=== PATIENT | male | born 1990 | race Caucasian/White ===

== ENCOUNTER 2016-10-04 00:57 | Emergency (ER) | payer OTHER ==
[~2016-10-04] VITALS: Ht 182.9 cm; Wt 107.0 kg
[~2016-10-04 00:57] MED LIST: ZOLP5TAB3 PO; [UNRECOGNIZED DRUG - REMARK]
[2016-10-04 01:15] VITALS: BP 111/80; PULSE 84; RESP 18; TEMP 98.9; O2SAT 96
[2016-10-04] MEDS ORDERED: FENO145T2 PO (01:15)
[2016-10-04] MEDS ORDERED: VIST50CA PO (01:15)
[2016-10-04] MEDS ORDERED: SODIUM CHLOR 0.9% 1000 ML INJ 1,000 ML IV ONE (01:30)
[2016-10-04] MEDS ORDERED: SODIUM CHLORIDE 0.9% FLUSH 10 ML FLUSH IVF PRN (01:30)
[2016-10-04 01:31] VITALS: BP 111/64; PULSE 73; RESP 16; O2SAT 95
--- NOTE | 2016-10-04 01:34 | PD ---
HPI Chief Complaint: Syncope/Near-Syncope Time Seen by Provider: 01:30 Travel History International Travel<30 days: No Contact w/Intl Traveler<30days: No Traveled to known affect area: No History of Present Illness HPI 25-year-old male with history of pituitary adenoma currently being evaluated, presents to the ER today because he had taken Vistaril which she usually takes for insomnia and had gone to the restroom, but had a syncopal episode. He denies any chest pains, shortness of breath, vomiting, headaches, or any other symptoms. He does not remember exactly what happened but apparently his family states that he stumbled out after he had had a syncopal episode and was poorly arousable, awoken with sternal rub. Modifying Factors: None Associated Signs & Symptoms: Apparent syncopal episode Risk Factors: History of pituitary adenoma PFSH Past Medical History Asthma: Yes (EXERCISE INDUCED) Cancer: Yes (BRAIN TUMOR 2009) Cardiovascular Problems: Yes (states mi was seen here 1-2 years ago) Diminished Hearing: No Endocrine: Yes (pituitary tumor) Headaches: Yes Musculoskeletal: Yes (CHRONIC NECK AND BACK PAIN) Neurologic: Yes (ENLARGED PITUITARY GLAND..) Immunizations Current: Yes Tetanus Vaccination: > 5 Years Past Surgical History Abdominal Surgery: Yes (WHEN HE WAS A BABY ) Neurologic Surgery: Yes (pituitary tumor removal) Other Surgery: Yes (ENDOSCOPY ) Social History Alcohol Use: Yes (SOCIALLY) Tobacco Use: Yes (/2 PPD- 1PPD) Substance Use: No Allergies-Medications (Allergen,Severity, Reaction): Coded Allergies: Dilaudid (Verified Allergy, Severe, Nausea/Vomiting, 10/04/16) Morphine (Verified Allergy, Severe, Diarrhea, 10/04/16) Benadryl (Verified Allergy, Intermediate, RASH, 10/04/16) Reported Meds & Prescriptions Reported Meds & Active Scripts Active Reported Vistaril (Hydroxyzine Pamoate) 50 Mg Cap 50 Mg PO HS Fenofibrate 145 Mg Tab 145 Mg PO DAILY Review of Systems Except as stated in HPI: all other systems reviewed are Neg Physical Exam Narrative GENERAL: Well-developed young male patient currently in mild distress, fairly lethargic, but awake and oriented 3 and able to answer questions appropriately. SKIN: Focused skin assessment warm/dry. HEAD: Atraumatic. Normocephalic. EYES: Pupils equal and round. No scleral icterus. No injection or drainage. ENT: No nasal bleeding or discharge. Mucous membranes pink and moist. NECK: Trachea midline. No JVD. CARDIOVASCULAR: Regular rate and rhythm. No murmur appreciated. RESPIRATORY: No accessory muscle use. Clear to auscultation. Breath sounds equal bilaterally. GASTROINTESTINAL: Abdomen soft, non-tender, nondistended. Hepatic and splenic margins not palpable. MUSCULOSKELETAL: No obvious deformities. No clubbing. No cyanosis. No edema. NEUROLOGICAL: Awake and alert. No obvious cranial nerve deficits. Motor grossly within normal limits. Slurred speech. PSYCHIATRIC: Appropriate mood and affect; insight and judgment normal. Data Data Last Documented VS Vital Signs Date Time Temp Pulse Resp B/P Pulse Ox O2 Delivery O2 Flow Rate FiO2 10/04/16 02:58 52 16 103/64 95 Room Air 10/04/16 01:15 98.9 Orders Electrocardiogram (10/04/16 01:30) Complete Blood Count With Diff (10/04/16 01:30) Comprehensive Metabolic Panel (10/04/16 01:30) Magnesium (Mg) (10/04/16 01:30) Chest, Single Ap (10/04/16 01:30) Ct Brain W/O Iv Contrast(Rout) (10/04/16 01:30) Ecg Monitoring (10/04/16 01:30) Iv Access Insert/Monitor (10/04/16 01:30) Oximetry (10/04/16 01:30) Sodium Chloride 0.9% Flush (Ns Flush) (10/04/16 01:30) Sodium Chlor 0.9% 1000 Ml Inj (Ns 1000 M (10/04/16 01:30) Labs Laboratory Tests Test 10/04/16 01:15 White Blood Count 8.6 TH/MM3 Red Blood Count 4.36 MIL/MM3 Hemoglobin 13.0 GM/DL Hematocrit 38.4 % Mean Corpuscular Volume 88.1 FL Mean Corpuscular Hemoglobin 29.8 PG Mean Corpuscular Hemoglobin 33.9 % Concent Red Cell Distribution Width 11.8 % Platelet Count 302 TH/MM3 Mean Platelet Volume 8.6 FL Neutrophils (%) (Auto) 38.3 % Lymphocytes (%) (Auto) 41.3 % Monocytes (%) (Auto) 13.0 % Eosinophils (%) (Auto) 6.7 % Basophils (%) (Auto) 0.7 % Neutrophils # (Auto) 3.3 TH/MM3 Lymphocytes # (Auto) 3.5 TH/MM3 Monocytes # (Auto) 1.1 TH/MM3 Eosinophils # (Auto) 0.6 TH/MM3 Basophils # (Auto) 0.1 TH/MM3 CBC Comment DIFF FINAL Differential Comment Sodium Level 138 MEQ/L Potassium Level 3.4 MEQ/L Chloride Level 103 MEQ/L Carbon Dioxide Level 29.5 MEQ/L Anion Gap 6 MEQ/L Blood Urea Nitrogen 9 MG/DL Creatinine 0.69 MG/DL Estimat Glomerular Filtration 138 ML/MIN Rate Random Glucose 111 MG/DL Calcium Level 8.8 MG/DL Magnesium Level 2.5 MG/DL Total Bilirubin 0.3 MG/DL Aspartate Amino Transf 47 U/L (AST/SGOT) Alanine Aminotransferase 64 U/L (ALT/SGPT) Alkaline Phosphatase 93 U/L Total Protein 8.1 GM/DL Albumin 4.1 GM/DL MDM Medical Decision Making Medical Screen Exam Complete: Yes Emergency Medical Condition: Yes Medical Record Reviewed: Yes Interpretation(s) EKG shows NSR, no acute ST elevation or depression, and no arrhythmias. No significant T-wave inversions. No delta waves or QT prolongation. Laboratory Tests Test 10/04/16 01:15 Red Blood Count 4.36 MIL/MM3 (4.50-5.90) Hematocrit 38.4 % (39.0-51.0) Monocytes (%) (Auto) 13.0 % (0.0-8.0) Eosinophils (%) (Auto) 6.7 % (0.0-4.0) Monocytes # (Auto) 1.1 TH/MM3 (0-0.9) Eosinophils # (Auto) 0.6 TH/MM3 (0-0.4) Potassium Level 3.4 MEQ/L (3.5-5.1) Random Glucose 111 MG/DL (74-106) Aspartate Amino Transf 47 U/L (15-37) (AST/SGOT) Last [address] 10/04/16129 Signed Impressions: Service Date/Time: Tuesday, October 04, 2016 02:26 - CONCLUSION: Pituitary macroadenoma with suprasellar extension. Mendy Elias MD Chest X-Ray 10/04/16129 Signed Impressions: Service Date/Time: Tuesday, October 04, 2016 02:40 - CONCLUSION: No acute cardiopulmonary disease. KArlene Elias MD Differential Diagnosis Syncopal episodeovermedication versus enlarging pituitary adenoma versus other acute intra-cranial processes versus metabolic issues versus dehydration Narrative Course Vital signs are stable in the ER. Patient is fairly somnolent from Vistaril. Lab work did not show significant metabolic issues except for very mild hypokalemia which I doubt is causing his current symptoms. He was given potassium in the ER. CAT scan of the brain shows pituitary adenoma, a known diagnosis. No other acute issues were identified. At this point, considering the history, it is very likely that the Vistaril may be causing some of the symptoms. It appears that he may be overmedicated. My plan would be to release him at this point and have him avoid taking the Vistaril for now and follow-up with primary care physician. Return for any worsening in symptoms as needed. The plan has discussed with him and he states understanding. Diagnosis Primary Impression: Syncope Disposition: DISCHARGE HOME Condition: Stable Deyanira Devine MD October 04, 2016 01:34 Disposition: DISCHARGE HOME Condition: Stable Deyanira Devine MD October 04, 2016 01:34
[2016-10-04 01:41] LABS: AUTOMATED NEUTROPHIL # 3.3 TH/MM3 (1.8-7.7); BASOPHIL # 0.1 TH/MM3 (0-0.2); BASOPHIL % 0.7 % (0.0-2.0); EOSINOPHIL # 0.6 TH/MM3 (0-0.4); EOSINOPHIL % 6.7 % (0.0-4.0); HEMATOCRIT 38.4 % (39.0-51.0); HEMO FLAGS DIFF FINAL; LYMPH % 41.3 % (9.0-44.0); LYMPHOCYTE # 3.5 TH/MM3 (1.0-4.8); MEAN CELL VOLUME 88.1 FL (80.0-100.0); MEAN CORPUSCULAR HEMOGLOBIN 29.8 PG (27.0-34.0); MEAN CORPUSCULAR HGB CONC 33.9 % (32.0-36.0); NEUT % 38.3 % (16.0-70.0); PLATELET COUNT 302 TH/MM3 (150-450); RED BLOOD COUNT 4.36 MIL/MM3 (4.50-5.90); RED CELL DISTRIBUTION WIDTH 11.8 % (11.6-17.2); WHITE BLOOD COUNT 8.6 TH/MM3 (4.0-11.0)
[2016-10-04 01:52] LABS: CHLORIDE 103 MEQ/L (98-107); POTASSIUM 3.4 MEQ/L (3.5-5.1); SODIUM (NA) 138 MEQ/L (136-145)
[2016-10-04 01:56] LABS: ANION GAP 6 MEQ/L (5-15); BICARBONATE 29.5 MEQ/L (21.0-32.0); BLOOD UREA NITROGEN 9 MG/DL (7-18); MAGNESIUM 2.5 MG/DL (1.5-2.5)
[2016-10-04 01:59] LABS: ALT (GPT) 64 U/L (12-78); AST (GOT) 47 U/L (15-37); GLOMERULAR FILTRATION RATE 138 ML/MIN (>89)
[2016-10-04 02:00] LABS: TOTAL BILIRUBIN ADULT 0.3 MG/DL (0.2-1.0)
[2016-10-04 02:02] LABS: ALKALINE PHOSPHATASE 93 U/L (45-117)
[2016-10-04 02:24] VITALS: BP 108/67; PULSE 64; RESP 16; O2SAT 95
--- NOTE | 2016-10-04 02:46 | RADHPO ---
EXAM DATE/TIME: 10/04/2016 02:40 [facility] COMPARISON: CHEST SINGLE AP, March 02, 2016, 0:16. INDICATIONS : Heart palpitations. MEDICAL HISTORY : None. SURGICAL HISTORY : None. ENCOUNTER: Initial ACUITY: 1 day PAIN SCORE: 7/10 LOCATION: Bilateral chest FINDINGS: The lungs are clear without infiltrate, nodule, or mass. There is no appreciable pleural effusion fo r technique. Heart and mediastinum are unremarkable. CONCLUSION: No acute cardiopulmonary disease. Mendy Elias MD on October 04, 2016 at 2:45 Board Certified Radiologist. This report was verified electronically.
[2016-10-04 02:58] VITALS: BP 103/64; PULSE 52; RESP 16; O2SAT 95
--- NOTE | 2016-10-04 03:10 | RADHPO ---
EXAM DATE/TIME: 10/04/2016 02:26 [facility] COMPARISON: No previous studies available for comparison. The patient's prior CT examinations of the brain are ar chived and not available for direct comparison at this time. INDICATIONS : Syncopal episode. History of pituitary adenoma. RADIATION DOSE: 61.98 CTDIvol (mGy) MEDICAL HISTORY : Pituitary adenoma. SURGICAL HISTORY : Pituitary adenoma removed. ENCOUNTER: Initial ACUITY: 1 day PAIN SCALE: 0/10 LOCATION: cranial TECHNIQUE: Multiple contiguous axial images were obtained of the head. Using automated exposure control and adj ustment of the mA and/or kV according to patient size, radiation dose was kept as low as reasonably a chievable to obtain optimal diagnostic quality images. FINDINGS: The pituitary gland is enlarged with macroadenoma which extends into the suprasellar cistern measures 1.2 cm in size in the suprasellar location. There is mild mucoperiosteal thickening within multiple eithmoid air cells. There is no evidence for intracranial hemorrhage, mass lesions, edema, or extra-a xial fluid collections. The visualized bony structures appear intact. The ventricles are normal siz e for the patient's age. There are no signs of acute infarction for technique. CONCLUSION: Pituitary macroadenoma with suprasellar extension. Mendy Elias MD on October 04, 2016 at 3:02 Board Certified Radiologist. This report was verified electronically.
[2016-10-04] MEDS ORDERED: POTASSIUM CHLORIDE 20 MEQ CONTROLLED RELEASE TAB PO ONE (03:30)
--- NOTE | 2016-10-04 13:18 | EKG ---
Date Performed: 10/04/2016 Time Performed: 01:37:50 PTAGE: 25 years EKG: Sinus arrhythmia. Inferior and ant/septal T wave changes are nonspecific Borderline ECG Com pared to prior tracing no significant change PREVIOUS TRACING : 03/02/2016 00.49 DOCTOR: Renato Galvan Interpretating Date/Time 10/04/2016 13:15:42
== END 2016-10-04 03:29 | disposition home or self-care (01) ==
LOC: PHED 00:57
DX: R55 Syncope and collapse (principal); D35.2 Benign neoplasm of pituitary gland; E87.6 Hypokalemia; I25.2 Old myocardial infarction; E23.6 Other disorders of pituitary gland; F17.210 Nicotine dependence, cigarettes, uncomplicated
CPT/HCPCS: 70450; 71010; 80053; 83735; 85025; 93005; 96360; 99285; J7030

== ENCOUNTER 2017-01-11 17:12 | Emergency (ER) | payer OTHER ==
[~2017-01-11] VITALS: Ht 182.9 cm; Wt 100.0 kg
[~2017-01-11 17:12] MED LIST changes: +FENO145T2 PO; +VIST50CA PO; -ZOLP5TAB3 PO; -[UNRECOGNIZED DRUG - REMARK]
[2017-01-11 17:21] VITALS: BP 110/62; PULSE 71; RESP 16; TEMP 98.4; O2SAT 98
[2017-01-11 17:42] VITALS: BP 113/69; PULSE 59; RESP 18; O2SAT 97
[2017-01-11] MEDS ORDERED: SODIUM CHLORID 0.9% 500 ML INJ 500 ML IV ONE (17:45)
[2017-01-11] MEDS ORDERED: ONDANSETRON HCL 4 MG/2 ML VIAL IV PUSH ONE (17:45)
--- NOTE | 2017-01-11 18:01 | PD ---
HPI Chief Complaint: GI Complaint Time Seen by Provider: 17:27 Travel History International Travel<30 days: No Contact w/Intl Traveler<30days: No Traveled to known affect area: No History of Present Illness HPI 26-year-old male states he's been having vomiting and abdominal pain since Tuesday. He states he also felt like he had a fever. He denies any diarrhea or other concurrent complaints. He denies specific modifying factors. He denies specific sick contacts. Quality is nonbloody. Severity is multiple episodes. PFSH Past Medical History Asthma: Yes (EXERCISE INDUCED) Cancer: Yes (BRAIN TUMOR 2009) Cardiovascular Problems: Yes (states mi was seen here 1-2 years ago) Diminished Hearing: No Endocrine: Yes (pituitary tumor) Headaches: Yes Musculoskeletal: Yes (CHRONIC NECK AND BACK PAIN) Neurologic: Yes (ENLARGED PITUITARY GLAND..) Immunizations Current: Yes Influenza Vaccination: No ?: Not Past Surgical History Abdominal Surgery: Yes (WHEN HE WAS A BABY ) Neurologic Surgery: Yes (pituitary tumor removal) Other Surgery: Yes (ENDOSCOPY ) Social History Alcohol Use: Yes (SOCIALLY) Tobacco Use: Yes (1/2 PPD- 1PPD) Substance Use: No Allergies-Medications (Allergen,Severity, Reaction): Coded Allergies: hydromorphone (Unverified Allergy, Severe, Nausea/Vomiting, 01/11/17) morphine (Unverified Allergy, Severe, Diarrhea, 01/11/17) diphenhydramine (Unverified Allergy, Intermediate, RASH, 01/11/17) Reported Meds & Prescriptions Reported Meds & Active Scripts Active Review of Systems Except as stated in HPI: all other systems reviewed are Neg Physical Exam Narrative GENERAL: Well-nourished, well-developed patient. Well-appearing SKIN: Warm and dry. HEAD: Normocephalic and atraumatic. EYES: No injection or drainage. ENT: No nasal drainage noted. NECK: Supple, trachea midline. CARDIOVASCULAR: Regular rate and rhythm RESPIRATORY: Breath sounds equal bilaterally. No accessory muscle use. GASTROINTESTINAL: Abdomen soft, mild tenderness lower abdomen, nondistended. EXTREMITIES: No edema. NEUROLOGICAL: Awake and alert. Motor and sensory grossly within normal limits. Normal speech. Data Data Last Documented VS Vital Signs Date Time Temp Pulse Resp B/P (MAP) Pulse Ox O2 Delivery O2 Flow Rate FiO2 8/29/17 17:54 01/11/17 17:42 59 18 97 Room Air 01/11/17 17:21 98.4 Orders Orders Complete Blood Count With Diff (01/11/17 17:31) Comprehensive Metabolic Panel (01/11/17 17:31) Urinalysis - C+S If Indicated (01/11/17 17:31) Lipase (01/11/17 17:31) Ondansetron Inj (Zofran Inj) (01/11/17 17:45) Sodium Chlorid 0.9% 500 Ml Inj (Ns 500 M (01/11/17 17:45) MDM Medical Decision Making Medical Screen Exam Complete: Yes Emergency Medical Condition: Yes Medical Record Reviewed: Yes (pmh confirmed) Differential Diagnosis Gastroenteritis, dehydration, atypical appendicitis Narrative Course Will check blood work, urinalysis, CT scan and dose with Zofran and reevaluate. Patient originally agreed to workup but then at 1750 patient states he wants to leave AMA, The risks of leaving against medical advice without further evaluation treatment were discussed with the patient. These risks include . The patient indicated understanding of these risks and appeared to have the capacity to make this decision. Diagnosis Primary Impression: Abdominal pain Qualified Codes: R10.30 - Lower abdominal pain, unspecified Additional Impression: Vomiting Qualified Codes: R11.10 - Vomiting, unspecified Patient Instructions: General Instructions Med/Other Pt SpecificInfo: No Change to Meds Disposition: 07 AGAINST MEDICAL ADVICE Condition: Stable Deyanira Morocho MD Jan 11, 2017 18:01
== END 2017-01-11 18:09 | disposition left against medical advice (07) ==
LOC: PHED 17:12
DX: R10.30 Lower abdominal pain, unspecified (principal); R11.10 Vomiting, unspecified; F17.210 Nicotine dependence, cigarettes, uncomplicated; E23.6 Other disorders of pituitary gland
CPT/HCPCS: 99281

== ENCOUNTER 2017-06-23 09:39 | Emergency (ER) | payer SELFPAY ==
[~2017-06-23] VITALS: Ht 182.9 cm; Wt 112.0 kg
[2017-06-23 09:45] VITALS: BP 112/60; PULSE 66; RESP 15; TEMP 98.4; O2SAT 96
[2017-06-23] MEDS ORDERED: HYDR1CRE TOPICAL (10:05)
[2017-06-23] MEDS ORDERED: CEPH-460 PO (10:05)
--- NOTE | 2017-06-23 10:05 | PD ---
HPI Chief Complaint: Skin Problem Time Seen by Provider: 09:50 Travel History International Travel<30 days: No Contact w/Intl Traveler<30days: No Traveled to known affect area: No History of Present Illness HPI This is a 26-year-old male here with rash to his upper back and left upper extremity 2 days. Patient reports the rash is mildly pruritic and painful when touched. No fever or chills. Reports no one else in the home with similar symptoms. Symptom severity is mild. PFSH Past Medical History Asthma: Yes (EXERCISE INDUCED) Cancer: Yes (BRAIN TUMOR 2009) Cardiovascular Problems: Yes (states mi was seen here 1-2 years ago) Diminished Hearing: No Endocrine: Yes (pituitary tumor) Headaches: Yes Musculoskeletal: Yes (CHRONIC NECK AND BACK PAIN) Neurologic: Yes (ENLARGED PITUITARY GLAND..) Immunizations Current: Yes Past Surgical History Abdominal Surgery: Yes (WHEN HE WAS A BABY ) Neurologic Surgery: Yes (pituitary tumor removal) Other Surgery: Yes (ENDOSCOPY ) Social History Alcohol Use: Yes (SOCIALLY) Tobacco Use: Yes (/2 PPD- 1PPD) Substance Use: No Allergies-Medications (Allergen,Severity, Reaction): Coded Allergies: hydromorphone (Unverified Allergy, Severe, Nausea/Vomiting, 06/23/17) morphine (Unverified Allergy, Severe, Diarrhea, 06/23/17) diphenhydramine (Unverified Allergy, Intermediate, RASH, 06/23/17) Reported Meds & Prescriptions Reported Meds & Active Scripts Active Review of Systems Except as stated in HPI: all other systems reviewed are Neg General / Constitutional: No: Fever Eyes: No: Visual changes HENT: No: Headaches Cardiovascular: No: Chest Pain or Discomfort Respiratory: No: Shortness of Breath Gastrointestinal: No: Abdominal Pain Genitourinary: No: Dysuria Skin: Positive Rash Neurologic: No: Weakness Physical Exam Narrative GENERAL: Alert and well-appearing 26-year-old male SKIN: Warm and dry. Numerous erythematous lesions with small central pustules to the upper back. This is consistent with folliculitis versus insect bites. No induration, fluctuance or surrounding cellulitis HEAD: Normocephalic. EYES: No injection or drainage. NECK: Supple CARDIOVASCULAR: Regular rate and rhythm RESPIRATORY: Breath sounds equal bilaterally. No accessory muscle use. Data Data Last Documented VS Vital Signs Date Time Temp Pulse Resp B/P (MAP) Pulse Ox O2 Delivery O2 Flow Rate FiO2 06/23/17 09:45 98.4 66 15 112/60 (77) 96 MDM Medical Decision Making Medical Screen Exam Complete: Yes Emergency Medical Condition: Yes Differential Diagnosis Folliculitis, insect bites, abscess Narrative Course 26-year-old male here with rash to his upper back and left upper extremity. The areas consistent with insect bite versus folliculitis. She is allergic to Benadryl. Will be treated with steroid cream and Keflex. Diagnosis Primary Impression: Folliculitis Referrals: Primary Care Physician Additional Instructions: Steroid cream as directed. Antibiotics as directed. Wash the area daily with soap and warm water. Scripts Cephalexin (Keflex) 500 Mg Cap 500 MG PO Q6H for Infection for 7 Days, #28 CAP 0 Refills Prov: Hortensia Vazquez 06/23/17 Hydrocortisone Topical (Hydrocortisone Topical) 1% Cream 1 APPLIC TOPICAL BID for Rash/Inflammation for 5 Days, GM 0 Refills Prov: Hortensia Vazquez 06/23/17 Disposition: 01 DISCHARGE HOME Condition: Stable Hortensia Vazquez Jun 23, 2017 10:05
[2017-06-24] MEDS ORDERED: INDO50CA PO (22:27)
== END 2017-06-23 10:30 | disposition home or self-care (01) ==
LOC: PHED 09:39
DX: L73.9 Follicular disorder, unspecified (principal); J45.909 Unspecified asthma, uncomplicated; F17.210 Nicotine dependence, cigarettes, uncomplicated; I25.2 Old myocardial infarction; Z85.841 Personal history of malignant neoplasm of brain; Z88.5 Allergy status to narcotic agent; Z88.8 Allergy status to other drugs, medicaments and biological substances
CPT/HCPCS: 99283

== ENCOUNTER 2017-06-24 21:21 | Emergency (ER) | payer SELFPAY ==
[~2017-06-24] VITALS: Ht 182.9 cm; Wt 114.0 kg
[~2017-06-24 21:21] MED LIST changes: +CEPH-460 PO; -FENO145T2 PO; +HYDR1CRE TOPICAL; -VIST50CA PO
[2017-06-24 21:29] VITALS: BP 108/57; PULSE 84; RESP 18; TEMP 98.3; O2SAT 96
[2017-06-24] MEDS ORDERED: INDO50CA PO (22:27)
--- NOTE | 2017-06-24 22:31 | PD ---
HPI Chief Complaint: Oral / Dental Pain or Problem Time Seen by Provider: 21:47 Travel History International Travel<30 days: No Contact w/Intl Traveler<30days: No Traveled to known affect area: No History of Present Illness HPI This patient complains of dental pain. He says that for 4 days he's had pain in his left lower front tooth. He denies fever or injury. Patient is extremely drowsy and can barely keep his eyes open. His girlfriend is in the room next to him and she is hounding Dr. Dale for narcotics. PFSH Past Medical History Asthma: Yes (EXERCISE INDUCED) Cancer: Yes (BRAIN TUMOR 2009) Cardiovascular Problems: Yes (states mi was seen here 1-2 years ago) Diminished Hearing: No Endocrine: Yes (pituitary tumor) Headaches: Yes Musculoskeletal: Yes (CHRONIC NECK AND BACK PAIN) Neurologic: Yes (ENLARGED PITUITARY GLAND..) Immunizations Current: Yes ?: Not Past Surgical History Abdominal Surgery: Yes (WHEN HE WAS A BABY ) Neurologic Surgery: Yes (pituitary tumor removal) Other Surgery: Yes (ENDOSCOPY ) Social History Alcohol Use: Yes (SOCIALLY) Tobacco Use: Yes (/2 PPD- 1PPD) Substance Use: No Allergies-Medications (Allergen,Severity, Reaction): Coded Allergies: hydromorphone (Unverified Allergy, Severe, Nausea/Vomiting, 06/24/17) morphine (Unverified Allergy, Severe, Diarrhea, 06/24/17) diphenhydramine (Unverified Allergy, Intermediate, RASH, 06/24/17) Reported Meds & Prescriptions Reported Meds & Active Scripts Active Indomethacin 50 Mg Cap 50 Mg PO TID 5 Days Take with food, milk, or antacids to decrease stomach adverse effects. Keflex (Cephalexin) 500 Mg Cap 500 Mg PO Q6H 7 Days Hydrocortisone Topical 1% Cream 1 Applic TOPICAL BID 5 Days Review of Systems General / Constitutional: No: Fever HENT: No: Headaches Cardiovascular: No: Chest Pain or Discomfort Respiratory: No: Cough Physical Exam Narrative SKIN: Focused skin assessment reveals no rash or ulcers. Skin is warm and dry. Palpation shows no induration or nodules. Normal gingiva with no obvious cavity RESPIRATORY: Respiratory effort unlabored, no retractions or use of accessory muscles. Breath sounds are clear and symmetric. CARDIOVASCULAR: Regular rate and rhythm without murmur. Extremities showed no edema or varicosities. Data Data Last Documented VS Vital Signs Date Time Temp Pulse Resp B/P (MAP) Pulse Ox O2 Delivery O2 Flow Rate FiO2 06/24/17 21:29 98.3 84 18 108/57 (74) 96 MDM Medical Decision Making Medical Screen Exam Complete: Yes Emergency Medical Condition: Yes Medical Record Reviewed: Yes Differential Diagnosis Drug-seeking behavior, overmedication, dental pain Narrative Course I have reviewed the patient's electronic medical record. Patient is very frequent visitor to the ER I don't see anything objective on oral cavity exam. He is so overmedicated appearing I'm not couple giving him sedating medication. I advised him of this and he decided to sign out AGAINST MEDICAL ADVICE. I advised him to check in with the dentist Diagnosis Primary Impression: Drug-seeking behavior Scripts Indomethacin (Indomethacin) 50 Mg Cap 50 MG PO TID for 5 Days, CAP 0 Refills Take with food, milk, or antacids to decrease stomach adverse effects. Prov: Anthony Lara MD 06/24/17 Disposition: 07 AGAINST MEDICAL ADVICE Anthony Lara MD Jun 24, 2017 22:31
== END 2017-06-24 22:25 | disposition left against medical advice (07) ==
LOC: PHEFT 21:21
DX: Z76.5 Malingerer [conscious simulation] (principal); F17.210 Nicotine dependence, cigarettes, uncomplicated
CPT/HCPCS: 99283

== ENCOUNTER 2017-08-09 12:14 | Emergency (ER) | payer SELFPAY ==
[~2017-08-09 12:14] MED LIST changes: +INDO50CA PO
[2017-08-09] MEDS ORDERED: EPINEPHrine HCL (1:10,000) 1 MG/10 ML SYRINGE IV ONE (12:15)
[2017-08-09] MEDS ORDERED: SODIUM BICARBONATE 8.4% INJ 50 MEQ/50 ML SYR IV ONE (12:15)
[2017-08-09] MEDS ORDERED: EPINEPHrine HCL (1:1000) 1 MG/ML VIAL ONE ×2 (12:28→12:33)
[2017-08-09 12:44] VITALS: O2SAT 95
--- NOTE | 2017-08-09 12:58 | PD ---
HPI Chief Complaint: Code Blue Time Seen by Provider: 12:44 Travel History International Travel<30 days: No Contact w/Intl Traveler<30days: No Traveled to known affect area: No History of Present Illness HPI 26-year-old male brought to the emergency room by EMS for cardiac arrest. Patient was getting CPR on route. Patient was intubated with a Combitube by EMS at the scene. Patient of his he was in no condition to give any history. History was obtained from EMS. As per them patient was with a young girl of unknown relationship. She called 911 when she found him unresponsive in the room. As per the girl to the paramedics she just stepped out because he was not feeling well to call 911 and when she returned she found him unresponsive. EMS evaluation was that they probably arrived soon after the patient arrested. Patient was given medication as per the ALS protocol without any ROSC. CPR was resumed once patient was brought into the room by the ER staff. Patient remained pulseless. As per EMS patient has history of brain tumor. [facility] Past Medical History Narrative Medical List of his past medical, surgical, social and family history is reviewed from the nursing note. Asthma: Yes (EXERCISE INDUCED) Cancer: Yes (BRAIN TUMOR 2009) Cardiovascular Problems: Yes (states mi was seen here 1-2 years ago) Diminished Hearing: No Endocrine: Yes (pituitary tumor) Headaches: Yes Musculoskeletal: Yes (CHRONIC NECK AND BACK PAIN) Neurologic: Yes (ENLARGED PITUITARY GLAND..) Immunizations Current: Yes Past Surgical History Abdominal Surgery: Yes (WHEN HE WAS A BABY ) Neurologic Surgery: Yes (pituitary tumor removal) Other Surgery: Yes (ENDOSCOPY ) Social History Alcohol Use: Yes (SOCIALLY) Tobacco Use: Yes (1/2 PPD- 1PPD) Substance Use: No Allergies-Medications (Allergen,Severity, Reaction): Coded Allergies: hydromorphone (Unverified Allergy, Severe, Nausea/Vomiting, 06/24/17) morphine (Unverified Allergy, Severe, Diarrhea, 06/24/17) diphenhydramine (Unverified Allergy, Intermediate, RASH, 06/24/17) Comments List of his allergies reviewed from the nursing note. Reported Meds & Prescriptions Reported Meds & Active Scripts Active Indomethacin 50 Mg Cap 50 Mg PO TID 5 Days Take with food, milk, or antacids to decrease stomach adverse effects. Keflex (Cephalexin) 500 Mg Cap 500 Mg PO Q6H 7 Days Hydrocortisone Topical 1% Cream 1 Applic TOPICAL BID 5 Days Narrative Medication List of his home medications reviewed from the nursing note. Review of Systems ROS Limitations: Intubated, Unresponsive Except as stated in HPI: all other systems reviewed are Neg Physical Exam Narrative GENERAL: Unresponsive, intubated, boarded SKIN: Ashen HEAD: Atraumatic. Normocephalic. EYES: 4 mm fixed and dilated. No scleral icterus. No injection or drainage. ENT: No nasal bleeding or discharge. Mucous membranes pink and moist. NECK: Trachea midline. No JVD. CARDIOVASCULAR: Pulseless RESPIRATORY: No spontaneous respirations GASTROINTESTINAL: Abdomen soft, non-tender, nondistended. Hepatic and splenic margins not palpable. MUSCULOSKELETAL: No obvious deformities. No clubbing. No cyanosis. No edema. NEUROLOGICAL: GCS is 3 PSYCHIATRIC: Unable to assess Data Data Last Documented VS Orders Orders Epinephrine (1:1000) Inj (Adrenalin (1:1 (08/09/17 12:28) Epinephrine (1:1000) Inj (Adrenalin (1:1 (08/09/17 12:33) Epinephrine (1:10,000) Inj (Epinephrine (08/09/17 12:15) Sodium Bicarbonate 8.4% Inj (Sodium Bica (08/09/17 12:15) MDM Medical Decision Making Medical Screen Exam Complete: Yes Emergency Medical Condition: Yes Medical Record Reviewed: Yes Differential Diagnosis Cardiorespiratory arrest Narrative Course 12:54 PM patient was continued to be resuscitated by high-quality CPR in the emergency room. Please refer to the nursing code sheet for the medications, dose and time given. There was never a ROSC achieved. I intubated the patient to change the Combitube to a more definitive airway which was ET tube. Please refer to my procedure note. Bedside ultrasound was done by me twice to look at the cardiac activity. Please refer to my procedure note. There was some idioventricular rhythm but bradycardiac squeeze appeared to be dismal. Eventually patient was pronounced at 12:37 PM given the futility of the condition. At this point down time was 59 minutes and CPR for 50 minutes. The charge nurse contacted the grandfather who as per her was not surprised about the knowledge of this bad knees. He is on his way. When he gets here I will speak with him. Patient will be an ME's case given a mortality at such a young age. Procedures Procedure Narrative Emergent intubation was performed: INTUBATION: The patient was put in optimal position for the procedure. Rapid sequence intubation was initiated by me using 0 milligrams of etomidate IV and 0 milligrams of none IV. The patient was intubated with a 7.5 cuffed endotracheal tube. Tube placement was confirmed by visualization of the tube and balloon passing through the cords, capnometry and subsequent chest x-ray. Breath sounds were equal and well aerated bilaterally postintubation. No breath sounds over stomach. Patient tolerated procedure well. Emergency department cardiac ultrasound was performed with patient consent. Small curvilinear probe was used in the epigastric, parasternal and dismal activity was noticed EKG Prior to Arrival: No Diagnosis Primary Impression: Cardiorespiratory arrest Disposition: 20 Condition: Emeterio Remy MD Aug 09, 2017 12:58
== END 2017-08-09 14:09 | disposition expired ==
LOC: NEPE 12:14
DX: I46.9 Cardiac arrest, cause unspecified (principal); J45.909 Unspecified asthma, uncomplicated; I25.2 Old myocardial infarction; M54.9 Dorsalgia, unspecified; M54.2 Cervicalgia; G89.29 Other chronic pain; R93.0 Abnormal findings on diagnostic imaging of skull and head, not elsewhere classified; F17.200 Nicotine dependence, unspecified, uncomplicated; Z85.841 Personal history of malignant neoplasm of brain
CPT/HCPCS: 31500; 92950; 99285; J0171